=== PATIENT | male | born 1955 | race Hispanic/Latino ===

== ENCOUNTER 2023-02-26 07:08 | Day surgery (SDC) | payer MEDICARE, OTHER ==
[~2023-02-26] VITALS: Ht 167.6 cm; Wt 59.0 kg
[~2023-02-26 07:08] MED LIST: LIPITOR20 MG PO; METFORMIN HCL500 MG PO; OLANZAPINE20 MG PO; ZESTRIL20 MG PO
[2023-02-26 07:26] VITALS: BP 130/68
--- NOTE | 2023-02-26 09:16 | NUR ---
02/26/23 0916 Chelsey Mccullough 0913-PT TO PACU IN LL POSITION. OPENS EYES TO VERBAL STIMULI. DENIES PAIN AND NAUSEA AND FALLS QUICKLY BACK TO SLEEP. BREATHING EASY AND UNLABORED. SPO2 >95% ON 1 L O2 VIA NC. O2 TITRATED DOWN TO ROOM AIR. PT EDUCATED ABOUT THE POC FOR PACU AND ENCOURAGED TO PASS GAS.
[2023-02-26 11:11] VITALS: BP 128/65
--- NOTE | 2023-02-27 08:26 | OR ---
[facility] [address], [place] [address] Signed DATE OF OPERATION: 02/26/2023 SURGEON: Deejay Blackwell MD PREOPERATIVE DIAGNOSES: 1. Screening. 2. Severe constipation. POSTOPERATIVE DIAGNOSES: 1. 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 2. Minimal sigmoid diverticulosis. 3. 4-5 mm polyps at distal right colon, hepatic flexure, 95 cm and 18 cm. 4. Moderate internal hemorrhoids. 5. Large prostate left greater than right. PROCEDURE: Colonoscopy with hot biopsy. ESTIMATED BLOOD LOSS: None. INDICATIONS: Zechariah is a 67-year-old bilingual gentleman, who was asked to see me for his initial screening colonoscopy. He said he retired from a [employer] in [place], [place]. He now lives in [place], [place] with his . He said he is very constipated. However, he takes no medication for the constipation. He had been to his primary care provider. He was asked to see me for initial screening colonoscopy. There is no family history of colon cancer or polyps. In the office, I had given Zechariah a pamphlet on colonoscopy. We had reviewed it together. He understands the nature of the test. There is risk including, but not limited to gas bloating, crampy abdominal pain, bleeding, perforation requiring surgery and missed diagnosis. In addition, he wanted us to call in a one gallon commercial bowel prep for his preop laxatives. He took one gallon bowel prep and said it worked out very nicely. We also explained the need for IV conscious sedation. He said his will take him home afterwards. He had expressed understanding and wished to proceed. He understands there is risk including, but not limited to gas bloating, crampy abdominal pain, bleeding, perforation requiring surgery, and missed diagnosis. PROCEDURE NOTE: Zechariah was taken into our endoscopy suite and placed in the left lateral decubitus Electronically Signed By: DEEJAY BLACKWELL MD 02/27/23 0826 PATIENT NAME: ZECHARIAH GALE OPERATIVE REPORT DATE OF : 57 REPORT #: [id number] PHYSICIAN: DEEJAY BLACKWELL MD PCP: LUIS F FRANCO MD REPORT IS CONFIDENTIAL AND NOT TO BE RELEASED WITHOUT AUTHORIZATION [facility] [address], [place] [address] Signed position. He was given a total of 6 mg of Versed and 100 mcg of fentanyl to cover the case. A digital rectal exam was performed and there were no obvious external hemorrhoids. He had good sphincter tone. He has a fairly prominent prostate gland. The left is significantly larger than the right. After this, the adult colonoscope was introduced and advanced under direct visualization of the camera. As it is common with very thin people, it took a little while to straighten out his colon with the help of our nurse and a little additional sedation. Eventually, we made it around into the cecum itself. Overall, his prep was good. He had a few areas of liquid particulate stool matter that I could not quite suction out completely, but overall I think he did well. We could easily see the appendiceal orifice and ileocecal valve. We had slowly withdrawn the scope. We had taken pictures throughout for photodocumentation. The above-mentioned polyps were easily removed with the help of hot biopsy forceps. He does have diverticula in the sigmoid colon. They are few to moderate in number, moderate in size and scattered about. Once in the rectum, the scope was then retroflexed and he does have moderate internal hemorrhoid columns. After this, the gas was suctioned out and colonoscope removed. Zechariah tolerated the procedure quite well. RECOMMENDATIONS: I will see Zechariah back in my office in 7 to 14 days to review his results. He might consider a fiber product along with some polyethylene glycol for severe constipation. Deejay Blackwell MD ALB/MODL /[id number] cc: MD Deejay Cerna MD Copies: LUIS F FRANCO MD, ANDREW L MD ~ Electronically Signed By: DEEJAY BLACKWELL MD 02/27/23 0826 PATIENT NAME: ZECHARIAH GALE OPERATIVE REPORT DATE OF : 57 REPORT #: [id number] PHYSICIAN: DEEJAY BLACKWELL MD PCP: LUIS F FRANCO MD REPORT IS CONFIDENTIAL AND NOT TO BE RELEASED WITHOUT AUTHORIZATION
--- NOTE | 2023-02-27 11:42 | PATH ---
[facility] [address] [facility] [address] [place], [place] [address] Signed SPECIMEN(S): A DISTAL ASCENDING/RIGHT POLYP SPECIMEN(S): B HEPATIC FLEXURE POLYP SPECIMEN(S): C COLON BIOPSY SPECIMEN(S): D DESCENDING/LEFT COLON POLYP AT 95 CM SPECIMEN(S): E SIGMOID COLON POLYP AT 18 CM SPECIMEN SOURCE: A. DISTAL ASCENDING/RIGHT POLYP B. HEPATIC FLEXURE POLYP C. COLON BIOPSY D. DESCENDING/LEFT COLON POLYP AT 95 CM E. SIGMOID COLON POLYP AT 18 CM CLINICAL HISTORY: Screening. Melanosis coli. FINAL PATHOLOGIC DIAGNOSIS: A. Distal ascending/right polyp: - Serrated polyp/adenoma (1 fragment). B. Hepatic flexure polyp: - Tubular adenoma (1 fragment). C. Colon biopsy: - Benign colonic mucosa, negative for pathologic inflammation. D. Descending/left colon biopsy at 95 cm: - Tubular adenoma (1 fragment). E. Sigmoid colon polyp at 18 cm: - Hyperplastic polyp (2 fragments). JVR:[id number] MICROSCOPIC EXAMINATION: Histologic sections of all submitted blocks are examined by light microscopy. These findings, together with the gross examination, support the pathologic diagnosis. GROSS DESCRIPTION: A. The specimen, labeled and designated "Chowdary, distal ascending/right colon polyp," is received in formalin and consists of one dockery soft tissue fragment, 0.4 cm. Entirely submitted in (A1). B. The specimen, labeled and designated "Chowdary, hepatic flexure polyp," is received in formalin and consists of one dockery soft tissue fragment, 0.2 cm. Entirely submitted in (B1). PATIENT NAME: MIQUEL CHOWDARY PATHOLOGY DATE OF : 57 REPORT #: [id number] PHYSICIAN: [employer] JEAN-CLAUDE PCP: LUIS F FRANCO MD REPORT IS CONFIDENTIAL AND NOT TO BE RELEASED WITHOUT AUTHORIZATION [facility] [address] [place], [place] [address] Signed C. The specimen, labeled and designated "Epi, colon biopsy," is received in formalin and consists of two dockery soft tissue fragments, ranging from 0.2-0.3 cm. Entirely submitted in (C1). D. The specimen, labeled and designated "Chowdary, descending/left colon polyp at 95 cm," is received in formalin and consists of one dockery soft tissue fragment, 0.3 cm. Entirely submitted in (D1). E. The specimen, labeled and designated "Chodwary, sigmoid colon polyp at 18 cm," is received in formalin and consists of two dockery soft tissue fragments, ranging from 0.2-0.3 cm. Entirely submitted in (E1). VB (under the direct supervision of a pathologist) The Gross Description was prepared using a voice recognition system. The report was reviewed for accuracy; however, sound-alike word errors, addition and/or deletions may occur. If there is any question about this report, please contact Client Services. PERFORMING LABORATORY: Technical component was performed by [facility], [address] [place] [id number] (CLIA# [id number]). Professional interpretation was performed by [email or web address], [address] [place] [id number] (CLIA#: [id number]). Diagnostician: Stanley Phelan MD Pathologist Electronically Signed 02/27/2023 Copies: ~ PATIENT NAME: MIQUEL CHOWDARY PATHOLOGY DATE OF : 57 REPORT #: [id number] PHYSICIAN: KEL BERMEO PCP: LUIS F FRANCO MD REPORT IS CONFIDENTIAL AND NOT TO BE RELEASED WITHOUT AUTHORIZATION
== END 2023-02-26 11:15 | disposition home or self-care (01) ==
LOC: DS 07:08 → OPS 07:08 → DS 08:15 → OPS 11:15
PROVIDERS: ATTEND Colon & Rectal Surgery
PROC: 0DBL8ZZ Excision of Transverse Colon, Via Natural or Artificial Opening Endoscopic (ICD-10-PCS; 2023-02-26)
PROC: 0DBN8ZZ Excision of Sigmoid Colon, Via Natural or Artificial Opening Endoscopic (ICD-10-PCS; 2023-02-26)
PROC: 0DBM8ZZ Excision of Descending Colon, Via Natural or Artificial Opening Endoscopic (ICD-10-PCS; 2023-02-26)
PROC: 0DBK8ZZ Excision of Ascending Colon, Via Natural or Artificial Opening Endoscopic (ICD-10-PCS; principal; 2023-02-26 08:15)
DX: D12.2 Benign neoplasm of ascending colon (principal); F31.9 Bipolar disorder, unspecified; I10 Essential (primary) hypertension; E78.00 Pure hypercholesterolemia, unspecified; E11.9 Type 2 diabetes mellitus without complications; K59.00 Constipation, unspecified; K57.30 Diverticulosis of large intestine without perforation or abscess without bleeding; K64.8 Other hemorrhoids; D12.3 Benign neoplasm of transverse colon; K63.5 Polyp of colon; D12.4 Benign neoplasm of descending colon
CPT/HCPCS: J2250; J3010; J7121